=== PATIENT | female | born 1985 | race Caucasian/White ===

== ENCOUNTER 2017-08-26 18:06 | Inpatient (IN) | payer BC ==
--- NOTE | 2017-08-26 18:41 | HP ---
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 Past Surgical History Comment: Adenoidectomy 1991 Myringotomy 1992 Pertinent Family History: See Records - Antepartal Records Antepartal Records: Reviewed, Complicated by: - hyperthyroid early in , resolved without treatment Review of Systems Constitutional: Uncomfortable CV Complaint: No Respiratory: Shortness of Breath: No - resolving URI Gastrointestinal: No Nausea/Vomiting Genitourinary: No Leaking Fluid Musculoskeletal: Contractions Neurological: No Headache Movement: Normal Exam Allergies/Adverse Reactions: Allergies No Known Allergies Allergy (Verified 08/26/17 18:25) - Measurements Height: 5 ft 4.75 in Weight: 159 lb Weight in lbs: 159 Body Mass Index (BMI): 26.6 Pre- Weight: 125 lb Weight Gained This : 34 lbs and 0 ozs - Exam Breast: - - soft, no masses Extremities: Edema - 1+ pretibial Heart: Normal Rhythm/Heart Sounds HEENT: No Significant Findings Lungs: Clear Bilaterally Reflexes: DTR 2+ Thyroid: No Thyromegaly - Ultrasound/Biophysical Profile Ultrasound Status: Not Done Targeted Exam Findings See L&D Outpatient Visit Provider Note for Findings: N/A Cervical Exam: 6cm Effacement: 100% Station: 0 Presenting Part: Vertex Membrane Status: Bulging EFM Findings - External Monitor Findings Baseline Heart Rate: 140 External Monitor Findings: Accelerations Present, No Pattern of Variable or Late Decelerations, Variability Moderate External Monitor Findings Comment: category 1 Contractions: Regular, Strong, 45-90 Seconds Contraction Frequency: every 3 minutes Assessment/Plan - Obstetrical Risk Factors Risk Factors Comment: none - Plan Plan: Active Labor Plan Comment: IUP at 40 w 5 days Will admit, anticipate vaginal delivery - Date/Time of Admission Date of Admission: 08/26/17 Time of Admission: 18:20
--- NOTE | 2017-08-26 22:39 | PN ---
Progress Note - Progress Note Date of Service: 08/26/17 Note: Has been in tub, now grunting, feeling pressure Cervix: fully, bulging membranes, vtx -1. No urge to push Wants to use nitrous
[2017-08-26] MEDS ORDERED: OXYTOCIN* 10 UNITS/ML 1 ML VIAL IM ONE (23:45)
[2017-08-26] MEDS ORDERED: Dibucaine 1% 28.35 GM TUBE PR PRN (23:45)
[2017-08-26] MEDS ORDERED: Witch Hazel PAD* JAR TOPICAL PRN (23:45)
[2017-08-26] MEDS ORDERED: Glycerin ADULT SUPP PR PRN (23:45)
[2017-08-26] MEDS ORDERED: Acetaminophen TAB* 325 MG PO PRN (23:45)
[2017-08-26] MEDS ORDERED: Ibuprofen TAB* 600 MG ONE (23:54)
[2017-08-26] MEDS: Ibuprofen TAB* 600 MG PO PRN (23:55)
--- NOTE | 2017-08-26 23:55 | PN ---
Progress Note - Progress Note Date of Service: 08/26/17 Note: AROM at 2259, bloody fluid Encouraged to push SVB 2321, see delivery note
--- NOTE | 2017-08-26 23:59 | PROCNOTE ---
[facility] OB: Delivery Note - Perineum Perineal Injury: Abrasion Only - Not Repaired - Events Delivery Events of Note: Shoulder Dystocia - Additional Delivery Notes Additional Delivery Notes: SVB LFC, OA over perineal abrasion. Shoulder dystocia x 30secs, relieved by Precious maneuver and maternal effort. Infant pink with stimulation, good HR. Placenta Rogelio. Fundus firm with massage. Pitocin 10u IM given. Mother and baby in good condition. Apgars 8/8. EBL 200cc
[2017-08-27] MEDS: Ibuprofen TAB* 600 MG PO PRN ×2 (06:08→11:51)
[2017-08-27] MEDS: Ferrous Gluconate TAB* 324 MG TAB PO SCH (09:31)
[2017-08-27] MEDS: Docusate CAP* 100 MG PO SCH ×3 (09:48→20:41)
[2017-08-28 07:28] LABS: ABS Basophils 0.1 10^3/ul (0-0.2); ABS Eosinophils 0.2 10^3/ul (0-0.6); ABS Lymphocytes 2.3 10^3/ul (1.0-4.8); ABS Monocytes 0.6 10^3/ul (0-0.8); ABS Neutrophils 7.4 10^3/ul (1.5-7.7); ABS Nucleated RBC 0 10^3/ul; Eosinophil % 1.5 % (0-6); Hematocrit 36 % (35-47); Lymphocyte % 21.8 % (25-47); Mean Corpuscular HGB Conc 33 g/dl (31-36); Mean Corpuscular Hemoglobin 27 pg (27-31); Mean Corpuscular Volume 82 fL (80-97); Mean Platelet Volume 8.7 um3 (7.4-10.4); Nucleated Red Blood Cells % 0.1; Platelet Count 241 10^3/ul (150-450); Red Blood Count 4.38 10^6/ul (4.00-5.40); Red Cell Distribution Width 15 % (10.5-15); White Blood Count 10.6 10^3/ul (3.5-10.8)
[2017-08-28 08:06] VITALS: BP 96/61
[2017-08-28] MEDS: Docusate CAP* 100 MG PO SCH (09:55)
[2017-08-28] MEDS: Ferrous Gluconate TAB* 324 MG TAB PO SCH (09:55)
== END 2017-08-28 10:45 | disposition home or self-care (01) | DRG 560 ==
LOC: MCHOBOUT 18:06 → MCHOB 18:20
PROVIDERS: ADMIT Midwife; ATTEND Midwife
PROC: 10E0XZZ Delivery of Products of Conception, External Approach (ICD-10-PCS; principal; 2017-08-26)
PROC: 10907ZC Drainage of Amniotic Fluid, Therapeutic from Products of Conception, Via Natural or Artificial Opening (ICD-10-PCS; 2017-08-26)
DX: O48.0 Post-term pregnancy (principal); O70.0 First degree perineal laceration during delivery; O99.344 Other mental disorders complicating childbirth; F41.9 Anxiety disorder, unspecified; O66.0 Obstructed labor due to shoulder dystocia; Z3A.40 40 weeks gestation of pregnancy; Z37.0 Single live birth
CPT/HCPCS: 36415; 85025; A9270-GY; J2590